=== PATIENT | female | born 1940 | race Caucasian/White ===

== ENCOUNTER 2017-06-14 17:45 | Inpatient (IN) ==
[2017-06-14] MEDS ORDERED: MORPHINE 2 MG/1 ML SYRINGE IM ONE (18:39)
[2017-06-14] MEDS ORDERED: ONDANSETRON 4 MG/2 ML VIAL IM ONE (18:39)
[2017-06-14] MEDS ORDERED: ONDANSETRON 4 MG/2 ML VIAL ONE (18:46)
[2017-06-14] MEDS ORDERED: MORPHINE 2 MG/1 ML SYRINGE ONE (18:46)
[2017-06-14 19:19] LABS: Basophils # 0.1 10*3/uL (0.0-0.2); Basophils % 0.6 % (0.0-0.8); Eosinophils # 0.2 10*3/uL (0.0-0.87); Eosinophils % 1.4 % (0.00-10.9); Hematocrit 44.4 VOL% (35.7-47.0); Hemoglobin 15.4 GM/DL (12.0-16.0); Immature Granulocytes % 0.7 %; Immature Granulocytes Absolute 0.09 #; Lymphocytes # 1.3 10*3/uL (1.4-4.0); Lymphocytes % 10.4 % (21.3-54.2); Mean Corpuscular HGB Conc 34.7 GM/DL (32-36); Mean Corpuscular Hemoglobin 32 PG (27-34); Mean Corpuscular Volume 92.1 FL (87-102); Mean Platelet Volume 9.7 FL (9.6-12.0); Monocytes # 1.2 10*3/uL (0.11-0.8); Monocytes % 9.9 % (1.7-12.7); Neutrophils # 9.4 10*3/uL (1.4-7.4); Platelet Count 219 T/CUMM (130-400); Red Blood Count 4.82 MC/CUMM (3.8-5.5); Red Cell Distribution Width 13.5 % (9.3-17.3); White Blood Count 12.2 T/CUMM (4-12)
[2017-06-14 19:28] LABS: INR 1.7; PT Patient Result 17.4 SECS
[2017-06-14 19:49] LABS: Albumin 3.6 G/DL (3.4-5.0); Bilirubin,Total 0.4 MG/DL (0.2-1.0); Calcium 8.7 MG/DL (8.5-10.1); Osmolality,Calculated 280.5 MOS/KG (273-304); Potassium 3.8 MMOL/L (3.5-5.1)
[2017-06-14] MEDS ORDERED: WARFARIN 5 MG TABLET PO ONE (20:30)
[2017-06-14] MEDS: WARFARIN 5 MG TABLET PO SCH (21:21)
[2017-06-14] MEDS: TOLTERODINE LA 4 MG CAPSULE PO SCH (21:21)
[2017-06-14] MEDS: CARVEDILOL 25 MG TABLET PO SCH (21:21)
[2017-06-14] MEDS: FLECAINIDE 100 MG TABLET PO SCH (21:22)
[2017-06-14] MEDS: GABAPENTIN 100 MG CAPSULE PO SCH (21:22)
[2017-06-14] MEDS: SODIUM CHLORIDE 0.9% 1,000 ML IV SCH (21:40)
[2017-06-14] MEDS ORDERED: HYDROCORTISONE 0.5% CREAM 28.35 GM TUBE TOP PRN (21:56)
[2017-06-15] MEDS: HYDROmorphone 2 MG/1 ML VIAL IV PRN ×2 (01:08→20:59)
[2017-06-15] MEDS: ONDANSETRON 4 MG/2 ML VIAL IV PRN ×2 (01:08→20:59)
[2017-06-15 06:26] LABS: Basophils % 0.6 % (0.0-0.8); Eosinophils # 0.3 10*3/uL (0.0-0.87); Eosinophils % 4.7 % (0.00-10.9); Hematocrit 39.2 VOL% (35.7-47.0); Hemoglobin 13.3 GM/DL (12.0-16.0); Immature Granulocytes % 0.6 %; Immature Granulocytes Absolute 0.04 #; Lymphocytes # 1.4 10*3/uL (1.4-4.0); Lymphocytes % 20.5 % (21.3-54.2); Mean Corpuscular HGB Conc 33.9 GM/DL (32-36); Mean Corpuscular Hemoglobin 32 PG (27-34); Mean Corpuscular Volume 94.5 FL (87-102); Mean Platelet Volume 10.1 FL (9.6-12.0); Monocytes % 14.6 % (1.7-12.7); Neutrophils # 4.1 10*3/uL (1.4-7.4); Platelet Count 188 T/CUMM (130-400); Red Blood Count 4.15 MC/CUMM (3.8-5.5); White Blood Count 6.9 T/CUMM (4-12)
[2017-06-15 06:28] LABS: INR 1.8; PT Patient Result 18.3 SECS
[2017-06-15 06:45] LABS: Calcium 8.2 MG/DL (8.5-10.1); Osmolality,Calculated 284.1 MOS/KG (273-304)
[2017-06-15] MEDS: CARVEDILOL 25 MG TABLET PO SCH ×2 (09:12→17:18)
[2017-06-15] MEDS: hydroCHLOROthiazide 12.5 MG CAPSULE PO SCH (09:12)
[2017-06-15] MEDS: IRBESARTAN 150 MG TABLET PO SCH (09:12)
[2017-06-15] MEDS: FLECAINIDE 100 MG TABLET PO SCH ×2 (09:12→21:05)
[2017-06-15] MEDS: LEVOTHYROXINE 150 MCG TABLET PO SCH (09:13)
[2017-06-15] MEDS: MULTIVITAMIN (CENTRUM) TABLET PO SCH (09:13)
[2017-06-15] MEDS: GABAPENTIN 100 MG CAPSULE PO SCH ×2 (09:13→21:05)
[2017-06-15] MEDS: CALCIUM (CARBONATE) 600 MG TABLET PO SCH (21:05)
[2017-06-15] MEDS: WARFARIN 5 MG TABLET PO SCH (21:06)
[2017-06-15] MEDS: TOLTERODINE LA 4 MG CAPSULE PO SCH (21:06)
[2017-06-15] MEDS: SODIUM CHLORIDE 0.9% 1,000 ML IV SCH (22:52)
[2017-06-16] MEDS: CARVEDILOL 25 MG TABLET PO SCH ×2 (09:54→18:55)
[2017-06-16] MEDS: IRBESARTAN 150 MG TABLET PO SCH (09:54)
[2017-06-16] MEDS: MULTIVITAMIN (CENTRUM) TABLET PO SCH (09:54)
[2017-06-16] MEDS: LEVOTHYROXINE 150 MCG TABLET PO SCH (09:54)
[2017-06-16] MEDS: hydroCHLOROthiazide 12.5 MG CAPSULE PO SCH (09:54)
[2017-06-16] MEDS: GABAPENTIN 100 MG CAPSULE PO SCH ×2 (09:54→21:07)
[2017-06-16] MEDS: FLECAINIDE 100 MG TABLET PO SCH ×2 (09:55→21:08)
[2017-06-16] MEDS: TOLTERODINE LA 4 MG CAPSULE PO SCH (21:07)
[2017-06-16] MEDS: WARFARIN 5 MG TABLET PO SCH (21:08)
[2017-06-16] MEDS: CALCIUM (CARBONATE) 600 MG TABLET PO SCH (21:08)
[2017-06-17] MEDS: HYDROmorphone 2 MG/1 ML VIAL IV PRN (04:09)
[2017-06-17] MEDS: LEVOTHYROXINE 150 MCG TABLET PO SCH (06:40)
[2017-06-17] MEDS: CARVEDILOL 25 MG TABLET PO SCH ×2 (09:15→17:16)
[2017-06-17] MEDS: IRBESARTAN 150 MG TABLET PO SCH (09:15)
[2017-06-17] MEDS: GABAPENTIN 100 MG CAPSULE PO SCH ×2 (09:15→20:58)
[2017-06-17] MEDS: FLECAINIDE 100 MG TABLET PO SCH ×2 (09:15→20:56)
[2017-06-17] MEDS: hydroCHLOROthiazide 12.5 MG CAPSULE PO SCH (09:15)
[2017-06-17] MEDS: MULTIVITAMIN (CENTRUM) TABLET PO SCH (09:15)
[2017-06-17] MEDS ORDERED: LACTULOSE 20 GM/30 ML UDCUP PO PRN (13:27)
[2017-06-17] MEDS ORDERED: BISACODYL 10 MG SUPP RECTAL ONE (13:28)
[2017-06-17 14:08] LABS: INR 1.6; PT Patient Result 16.5 SECS
[2017-06-17] MEDS ORDERED: WARFARIN 3 MG TABLET PO SCH (16:44)
[2017-06-17] MEDS: POLYETHYLENE GLYCOL POWDER 17 GM PACK PO SCH (20:50)
[2017-06-17] MEDS: TOLTERODINE LA 4 MG CAPSULE PO SCH (20:56)
[2017-06-17] MEDS: CALCIUM (CARBONATE) 600 MG TABLET PO SCH (20:57)
[2017-06-17] MEDS: DOCUSATE SODIUM 100 MG CAPSULE PO SCH (20:57)
[2017-06-18] MEDS: CARVEDILOL 25 MG TABLET PO SCH (08:15)
[2017-06-18] MEDS: LEVOTHYROXINE 150 MCG TABLET PO SCH (08:15)
[2017-06-18] MEDS: POLYETHYLENE GLYCOL POWDER 17 GM PACK PO SCH (08:58)
[2017-06-18] MEDS: FLECAINIDE 100 MG TABLET PO SCH (08:59)
[2017-06-18] MEDS: IRBESARTAN 150 MG TABLET PO SCH (09:00)
[2017-06-18] MEDS: hydroCHLOROthiazide 12.5 MG CAPSULE PO SCH (09:00)
[2017-06-18] MEDS ORDERED: amLODIPine 5 MG TABLET PO SCH (09:00)
[2017-06-18] MEDS: DOCUSATE SODIUM 100 MG CAPSULE PO SCH ×2 (09:01→09:06)
[2017-06-18] MEDS: MULTIVITAMIN (CENTRUM) TABLET PO SCH (09:01)
[2017-06-18] MEDS: GABAPENTIN 100 MG CAPSULE PO SCH (09:02)
[2017-06-18 10:21] LABS: INR 1.7; PT Patient Result 17.9 SECS
[2017-06-18 10:56] VITALS: BP 135/66
[2017-06-21] MEDS ORDERED: Alendronate [Fosamax] 70 MG PO SCH (07:30)
== END 2017-06-18 14:15 | DRG 536 ==
LOC: EDBD → EDUNIT# → N.EDINP 17:45 → N.ED 17:45 → N.3E 20:19
PROVIDERS: ADMIT Hospitalist; ATTEND Hospitalist

== ENCOUNTER 2018-04-24 11:31 | Inpatient (IN) ==
[2018-04-24] MEDS ORDERED: PANTOPRAZOLE 40 MG VIAL IV STA (11:59)
[2018-04-24] MEDS ORDERED: SODIUM CHLORIDE 0.9% 1,000 ML IV STA ×2 (11:59→13:25)
[2018-04-24 12:29] LABS: Basophils # 0.1 10*3/uL (0.0-0.2); Basophils % 0.4 % (0.0-0.8); Eosinophils % 0.2 % (0.00-10.9); Hematocrit 28.4 VOL% (35.7-47.0); Hemoglobin 9.8 GM/DL (12.0-16.0); Immature Granulocytes % 0.8 %; Immature Granulocytes Absolute 0.17 #; Lymphocytes # 1.6 10*3/uL (1.4-4.0); Mean Corpuscular HGB Conc 34.5 GM/DL (32-36); Mean Corpuscular Hemoglobin 33 PG (27-34); Mean Corpuscular Volume 95.3 FL (87-102); Mean Platelet Volume 11.5 FL (9.6-12.0); Monocytes # 0.9 10*3/uL (0.11-0.8); Monocytes % 4.2 % (1.7-12.7); Neutrophils # 19.6 10*3/uL (1.4-7.4); Neutrophils % 87.4 % (38.7-73.9); Platelet Count 202 T/CUMM (130-400); Red Blood Count 2.98 MC/CUMM (3.8-5.5); White Blood Count 22.4 T/CUMM (4-12)
[2018-04-24 12:41] LABS: Alanine Aminotransferase 25 U/L (13-56); Albumin 2.7 G/DL (3.4-5.0); Alkaline Phosphatase 56 U/L (45-117); Aspartate Amino Transferase 14 U/L (0-37); Bilirubin,Total < 0.39 MG/DL (0.2-1.0); Blood Urea Nitrogen 99 MG/DL (7-18); Calcium 9.4 MG/DL (8.5-10.1); Glucose 183 MG/DL (74-106); Osmolality,Calculated 316.3 MOS/KG (273-304); Potassium 4.2 MMOL/L (3.5-5.1); Sodium 141 MMOL/L (136-145)
[2018-04-24 12:44] LABS: INR 3.4
[2018-04-24 12:46] LABS: PT Patient Result 33.9 SECS
[2018-04-24] MEDS ORDERED: ONDANSETRON 4 MG/2 ML VIAL IV PRN (13:43)
[2018-04-24] MEDS ORDERED: MORPHINE 4 MG/1 ML VIAL IV PRN (13:43)
[2018-04-24] MEDS ORDERED: PHYTONADIONE 10 MG/1 ML AMP IV STA (13:47)
[2018-04-24] MEDS ORDERED: DILTIAZEM 50 MG/10 ML VIAL IV STA (13:50)
[2018-04-24] MEDS ORDERED: CARVEDILOL 25 MG TABLET PO SCH ×2 (14:00→21:00)
[2018-04-24 14:13] LABS: Band Neutrophils 7 % (0-10); Lymphocytes 6 % (20-55); Segmented Neutrophils 83 % (50-85); Stomatocytes Slight; Total Cells Counted 100
[2018-04-24 14:15] LABS: Platelet Estimate Normal; Polychromasia Slight
[2018-04-24] MEDS ORDERED: ACETAMINOPHEN 325 MG TABLET PO PRN (14:21)
[2018-04-24] MEDS ORDERED: SODIUM CHLORIDE 0.9% 1,000 ML IV PRN (14:41)
[2018-04-24] MEDS: PANTOPRAZOLE INJ 200 MG in SODIUM CHLORIDE 0.9% 250 ML IV SCH (17:15)
[2018-04-24] MEDS: SODIUM CHLORIDE 0.9% 1,000 ML IV SCH (17:15)
[2018-04-24] MEDS ORDERED: DILTIAZEM 25 MG/5 ML VIAL IV ONE (17:28)
[2018-04-24 17:56] LABS: Hematocrit 23.3 VOL% (35.7-47.0)
[2018-04-24 20:01] LABS: Hematocrit 23.7 VOL% (35.7-47.0); Hemoglobin 8.1 GM/DL (12.0-16.0)
[2018-04-24] MEDS ORDERED: IRBESARTAN 150 MG TABLET PO SCH (21:00)
[2018-04-24] MEDS ORDERED: DILTIAZEM CD 120 MG CAPSULE PO SCH (21:00)
[2018-04-24] MEDS: DILTIAZEM CD 120 MG CAPSULE PO SCH (21:18)
[2018-04-24] MEDS: CALCIUM (CARBONATE) 600 MG TABLET PO SCH (21:18)
[2018-04-24] MEDS: PRAVASTATIN 20 MG TABLET PO SCH (21:18)
[2018-04-24] MEDS: CARVEDILOL 25 MG TABLET PO SCH (21:18)
[2018-04-24] MEDS: FLECAINIDE 100 MG TABLET PO SCH (21:24)
[2018-04-25 01:10] LABS: Apearance,Urine Slightly Hazy (Clear); Bacteria,Urine Moderate /HPF (Few); Bilirubin,Urine Negative (Negative); Blood, Urine Negative (Negative); Glucose,Urine (UA) Negative (Negative); Hyaline Casts,Urine 1 /LPF (0-3); Ketones,Urine Negative (Negative); Mucus,Urine Occasional /LPF (Occasional); Nitrite,Urine Positive (Negative); Protein,Urine Negative; RBC,Urine 1 /HPF (0-4); Squamous Epithelial Cell,Urine Occasional /HPF (0-10); Urine Color Straw (Yellow); Urine Specific Gravity 1.011 (1.001-1.035); Urine Urobilinogen < 2.0 EU/DL (0.2-1.0); WBC,Urine 65 /HPF (0-6)
[2018-04-25 02:31] LABS: Basophils % 0.3 % (0.0-0.8); Eosinophils # 0.2 10*3/uL (0.0-0.87); Eosinophils % 1.6 % (0.00-10.9); Hematocrit 19.5 VOL% (35.7-47.0); Hemoglobin 6.6 GM/DL (12.0-16.0); Immature Granulocytes % 0.7 %; Immature Granulocytes Absolute 0.09 #; Lymphocytes # 2.4 10*3/uL (1.4-4.0); Lymphocytes % 18.9 % (21.3-54.2); Mean Corpuscular HGB Conc 33.8 GM/DL (32-36); Mean Corpuscular Hemoglobin 33 PG (27-34); Mean Corpuscular Volume 96.5 FL (87-102); Mean Platelet Volume 10.2 FL (9.6-12.0); Monocytes % 7.6 % (1.7-12.7); Neutrophils # 9.1 10*3/uL (1.4-7.4); Neutrophils % 70.9 % (38.7-73.9); Platelet Count 139 T/CUMM (130-400); Red Blood Count 2.02 MC/CUMM (3.8-5.5); Red Cell Distribution Width 14.1 % (9.3-17.3); White Blood Count 12.8 T/CUMM (4-12)
[2018-04-25 02:45] LABS: INR 1.2; PT Patient Result 12.6 SECS
[2018-04-25] MEDS: SODIUM CHLORIDE 0.9% 1,000 ML IV SCH (02:46)
[2018-04-25 03:03] LABS: Albumin 2.1 G/DL (3.4-5.0); Bilirubin,Total 0.4 MG/DL (0.2-1.0); Calcium 7.8 MG/DL (8.5-10.1); Osmolality,Calculated 316.3 MOS/KG (273-304); Potassium 3.5 MMOL/L (3.5-5.1); Total Protein 4.4 G/DL (6.4-8.3)
[2018-04-25] MEDS: LEVOTHYROXINE 150 MCG TABLET PO SCH (06:09)
[2018-04-25] MEDS ORDERED: MAGNESIUM SULF RIDER 2 GM in PREMIX 1 EACH IV ONE (07:54)
[2018-04-25] MEDS ORDERED: FUROSEMIDE 40 MG TABLET PO SCH (09:00)
[2018-04-25] MEDS ORDERED: hydroCHLOROthiazide 25 MG TABLET PO SCH (09:00)
[2018-04-25] MEDS ORDERED: POTASSIUM CHLORIDE 20 MEQ TABLET PO SCH (09:00)
[2018-04-25] MEDS: LACTATED RINGERS 1,000 ML IV SCH (09:10)
[2018-04-25] MEDS: CIPROFLOXACIN INJ 400 MG in PREMIX 1 EACH IV SCH ×2 (09:10→20:08)
[2018-04-25] MEDS: CARVEDILOL 25 MG TABLET PO SCH ×2 (09:51→20:41)
[2018-04-25] MEDS: MULTIVITAMIN (CENTRUM) TABLET PO SCH (09:51)
[2018-04-25] MEDS: DILTIAZEM CD 120 MG CAPSULE PO SCH ×2 (09:51→20:40)
[2018-04-25] MEDS: TOLTERODINE LA 4 MG CAPSULE PO SCH (09:52)
[2018-04-25] MEDS: FLECAINIDE 100 MG TABLET PO SCH (09:59)
[2018-04-25 12:12] LABS: Hematocrit 28.7 VOL% (35.7-47.0)
[2018-04-25 12:14] LABS: Hemoglobin 9.9 GM/DL (12.0-16.0)
[2018-04-25] MEDS: ALPRAZolam 0.5 MG TABLET PO PRN (16:14)
[2018-04-25] MEDS: PANTOPRAZOLE INJ 200 MG in SODIUM CHLORIDE 0.9% 250 ML IV SCH (18:02)
[2018-04-25 18:14] LABS: Hematocrit 29.4 VOL% (35.7-47.0); Hemoglobin 10.4 GM/DL (12.0-16.0)
[2018-04-25] MEDS: PRAVASTATIN 20 MG TABLET PO SCH (20:41)
[2018-04-25] MEDS: CALCIUM (CARBONATE) 600 MG TABLET PO SCH (20:41)
[2018-04-26] MEDS: LACTATED RINGERS 1,000 ML IV SCH ×2 (00:34→10:34)
[2018-04-26 04:05] LABS: Basophils % 0.3 % (0.0-0.8); Eosinophils # 0.4 10*3/uL (0.0-0.87); Hematocrit 25.8 VOL% (35.7-47.0); Hemoglobin 9.1 GM/DL (12.0-16.0); Immature Granulocytes % 0.6 %; Immature Granulocytes Absolute 0.05 #; Lymphocytes # 2.3 10*3/uL (1.4-4.0); Lymphocytes % 25.4 % (21.3-54.2); Mean Corpuscular HGB Conc 35.3 GM/DL (32-36); Mean Corpuscular Hemoglobin 33 PG (27-34); Mean Corpuscular Volume 92.5 FL (87-102); Mean Platelet Volume 10.5 FL (9.6-12.0); Monocytes # 0.6 10*3/uL (0.11-0.8); Monocytes % 7.1 % (1.7-12.7); NRBC # 0.02 10*3/uL; Neutrophils # 5.7 10*3/uL (1.4-7.4); Neutrophils % 62.6 % (38.7-73.9); Platelet Count 149 T/CUMM (130-400); Red Blood Count 2.79 MC/CUMM (3.8-5.5); Red Cell Distribution Width 14.4 % (9.3-17.3); White Blood Count 9.1 T/CUMM (4-12)
[2018-04-26 04:09] LABS: INR 1.1; PT Patient Result 11.4 SECS
[2018-04-26 04:11] LABS: Albumin 2.2 G/DL (3.4-5.0); Bilirubin,Total 0.9 MG/DL (0.2-1.0); Calcium 7.7 MG/DL (8.5-10.1); Osmolality,Calculated 297.4 MOS/KG (273-304); Potassium 3.4 MMOL/L (3.5-5.1); Total Protein 4.6 G/DL (6.4-8.3)
[2018-04-26] MEDS: LEVOTHYROXINE 150 MCG TABLET PO SCH (06:23)
[2018-04-26] MEDS ORDERED: MAGNESIUM HYDROXIDE SUSP 30 ML UDCUP PO PRN (07:37)
[2018-04-26] MEDS: MULTIVITAMIN (CENTRUM) TABLET PO SCH (09:37)
[2018-04-26] MEDS: POTASSIUM CHLORIDE 20 MEQ TABLET PO SCH ×2 (09:37→16:29)
[2018-04-26] MEDS: CARVEDILOL 25 MG TABLET PO SCH ×2 (09:37→20:32)
[2018-04-26] MEDS: CIPROFLOXACIN INJ 400 MG in PREMIX 1 EACH IV SCH ×2 (09:37→20:07)
[2018-04-26] MEDS: DILTIAZEM CD 120 MG CAPSULE PO SCH ×2 (09:37→20:32)
[2018-04-26] MEDS: TOLTERODINE LA 4 MG CAPSULE PO SCH (09:53)
[2018-04-26] MEDS ORDERED: POTASSIUM CHLORIDE 20 MEQ TABLET PO ONE (16:30)
[2018-04-26] MEDS: CALCIUM (CARBONATE) 600 MG TABLET PO SCH (20:31)
[2018-04-26] MEDS: PRAVASTATIN 20 MG TABLET PO SCH (20:32)
[2018-04-26] MEDS: PANTOPRAZOLE 40 MG VIAL IV SCH (20:34)
[2018-04-26] MEDS: ALPRAZolam 0.5 MG TABLET PO PRN (22:42)
[2018-04-27 04:09] LABS: Basophils % 0.3 % (0.0-0.8); Eosinophils # 0.4 10*3/uL (0.0-0.87); Eosinophils % 4.4 % (0.00-10.9); Hematocrit 26.8 VOL% (35.7-47.0); Hemoglobin 8.9 GM/DL (12.0-16.0); Immature Granulocytes % 0.8 %; Immature Granulocytes Absolute 0.07 #; Lymphocytes % 23.2 % (21.3-54.2); Mean Corpuscular HGB Conc 33.2 GM/DL (32-36); Mean Corpuscular Hemoglobin 33 PG (27-34); Mean Corpuscular Volume 97.8 FL (87-102); Mean Platelet Volume 10.6 FL (9.6-12.0); Monocytes # 0.7 10*3/uL (0.11-0.8); Monocytes % 8.4 % (1.7-12.7); Neutrophils # 5.4 10*3/uL (1.4-7.4); Neutrophils % 62.9 % (38.7-73.9); Platelet Count 157 T/CUMM (130-400); Red Blood Count 2.74 MC/CUMM (3.8-5.5); Red Cell Distribution Width 14.8 % (9.3-17.3); White Blood Count 8.6 T/CUMM (4-12)
[2018-04-27 04:14] LABS: INR 1.1; PT Patient Result 11.1 SECS
[2018-04-27] MEDS: LACTATED RINGERS 1,000 ML IV SCH ×4 (04:24→20:09)
[2018-04-27 04:51] LABS: Albumin 2.4 G/DL (3.4-5.0); Bilirubin,Total 0.9 MG/DL (0.2-1.0); Calcium 8.2 MG/DL (8.5-10.1); Osmolality,Calculated 296.1 MOS/KG (273-304); Potassium 4.2 MMOL/L (3.5-5.1); Total Protein 4.7 G/DL (6.4-8.3)
[2018-04-27] MEDS: LEVOTHYROXINE 150 MCG TABLET PO SCH (06:17)
[2018-04-27] MEDS: DILTIAZEM CD 120 MG CAPSULE PO SCH ×2 (09:27→21:07)
[2018-04-27] MEDS: CIPROFLOXACIN INJ 400 MG in PREMIX 1 EACH IV SCH (09:27)
[2018-04-27] MEDS: MULTIVITAMIN (CENTRUM) TABLET PO SCH (09:27)
[2018-04-27] MEDS: TOLTERODINE LA 4 MG CAPSULE PO SCH (09:27)
[2018-04-27] MEDS: CARVEDILOL 25 MG TABLET PO SCH ×2 (09:27→21:07)
[2018-04-27] MEDS: PANTOPRAZOLE 40 MG VIAL IV SCH (09:28)
[2018-04-27] MEDS ORDERED: PHENYLEPHRINE 1 MG/10 ML SYRINGE IV ONE (10:00)
[2018-04-27] MEDS ORDERED: LIDOCAINE 100 MG/5 ML SYRINGE ONE (10:00)
[2018-04-27] MEDS ORDERED: PROPOFOL 200 MG/20 ML VIAL IV ONE (10:00)
[2018-04-27] MEDS: PANTOPRAZOLE 40 MG TABLET PO SCH (21:07)
[2018-04-27] MEDS: CIPROFLOXACIN 500 MG TABLET PO SCH (21:07)
[2018-04-27] MEDS: CALCIUM (CARBONATE) 600 MG TABLET PO SCH (21:07)
[2018-04-27] MEDS: PRAVASTATIN 20 MG TABLET PO SCH (21:07)
[2018-04-28] MEDS: LACTATED RINGERS 1,000 ML IV SCH (05:21)
[2018-04-28 05:35] LABS: Basophils % 0.4 % (0.0-0.8); Eosinophils # 0.3 10*3/uL (0.0-0.87); Eosinophils % 3.7 % (0.00-10.9); Hematocrit 26.7 VOL% (35.7-47.0); Immature Granulocytes % 0.5 %; Immature Granulocytes Absolute 0.04 #; Lymphocytes # 1.1 10*3/uL (1.4-4.0); Lymphocytes % 14.9 % (21.3-54.2); Mean Corpuscular HGB Conc 33.7 GM/DL (32-36); Mean Corpuscular Hemoglobin 32 PG (27-34); Mean Platelet Volume 10.2 FL (9.6-12.0); Monocytes # 0.7 10*3/uL (0.11-0.8); Monocytes % 8.7 % (1.7-12.7); Neutrophils # 5.5 10*3/uL (1.4-7.4); Neutrophils % 71.8 % (38.7-73.9); Platelet Count 178 T/CUMM (130-400); Red Blood Count 2.78 MC/CUMM (3.8-5.5); Red Cell Distribution Width 14.7 % (9.3-17.3); White Blood Count 7.6 T/CUMM (4-12)
[2018-04-28 05:49] LABS: Osmolality,Calculated 290.6 MOS/KG (273-304); Potassium 3.9 MMOL/L (3.5-5.1)
[2018-04-28] MEDS: LEVOTHYROXINE 150 MCG TABLET PO SCH (06:38)
[2018-04-28] MEDS: CIPROFLOXACIN 500 MG TABLET PO SCH ×2 (09:00→20:58)
[2018-04-28] MEDS: DILTIAZEM CD 120 MG CAPSULE PO SCH ×2 (09:13→20:58)
[2018-04-28] MEDS: CARVEDILOL 25 MG TABLET PO SCH ×2 (09:13→20:58)
[2018-04-28] MEDS: MULTIVITAMIN (CENTRUM) TABLET PO SCH (09:13)
[2018-04-28] MEDS: PANTOPRAZOLE 40 MG TABLET PO SCH ×2 (09:13→20:58)
[2018-04-28] MEDS: TOLTERODINE LA 4 MG CAPSULE PO SCH (09:13)
[2018-04-28] MEDS ORDERED: LEVOTHYROXINE 175 MCG TABLET PO SCH (11:20)
[2018-04-28] MEDS: PRAVASTATIN 20 MG TABLET PO SCH (20:58)
[2018-04-28] MEDS: CALCIUM (CARBONATE) 600 MG TABLET PO SCH (20:58)
[2018-04-29] MEDS ORDERED: BISACODYL 5 MG TABLET PO ONE
[2018-04-29 08:14] LABS: Basophils # 0.1 10*3/uL (0.0-0.2); Basophils % 0.6 % (0.0-0.8); Eosinophils # 0.2 10*3/uL (0.0-0.87); Eosinophils % 2.9 % (0.00-10.9); Hematocrit 28.9 VOL% (35.7-47.0); Hemoglobin 9.8 GM/DL (12.0-16.0); Immature Granulocytes % 0.7 %; Immature Granulocytes Absolute 0.06 #; Lymphocytes # 1.2 10*3/uL (1.4-4.0); Lymphocytes % 14.7 % (21.3-54.2); Mean Corpuscular HGB Conc 33.9 GM/DL (32-36); Mean Corpuscular Hemoglobin 33 PG (27-34); Mean Corpuscular Volume 98.3 FL (87-102); Mean Platelet Volume 9.8 FL (9.6-12.0); Monocytes # 0.7 10*3/uL (0.11-0.8); Monocytes % 8.3 % (1.7-12.7); NRBC # 0.02 10*3/uL; Neutrophils % 72.8 % (38.7-73.9); Platelet Count 204 T/CUMM (130-400); Red Blood Count 2.94 MC/CUMM (3.8-5.5); Red Cell Distribution Width 15.4 % (9.3-17.3); White Blood Count 8.2 T/CUMM (4-12)
[2018-04-29] MEDS: CIPROFLOXACIN 500 MG TABLET PO SCH (09:27)
[2018-04-29] MEDS: CARVEDILOL 25 MG TABLET PO SCH (09:28)
[2018-04-29] MEDS: MULTIVITAMIN (CENTRUM) TABLET PO SCH (09:28)
[2018-04-29] MEDS: DILTIAZEM CD 120 MG CAPSULE PO SCH (09:28)
[2018-04-29] MEDS: PANTOPRAZOLE 40 MG TABLET PO SCH (09:28)
[2018-04-29] MEDS: TOLTERODINE LA 4 MG CAPSULE PO SCH (09:28)
[2018-04-29 11:21] VITALS: BP 105/55
[2018-05-01] MEDS ORDERED: NON-FORMULARY MEDICATION (Alendronate [Fosamax] 70 MG) PO SCH (07:30)
== END 2018-04-29 11:50 | disposition home or self-care (01) | DRG 813 ==
LOC: N.ED 11:31 → SUATTDRO 13:43 → N.EDINP 13:43 → N.ICU 16:16 → N.TELEN 04-27 13:19
PROVIDERS: ADMIT Internal Medicine; ATTEND Internal Medicine

== ENCOUNTER 2018-09-14 05:24 | Inpatient (IN) ==
[2018-09-09 10:55] LABS: Apearance,Urine Slightly Hazy (Clear); Bacteria,Urine Many /HPF (Few); Bilirubin,Urine Negative (Negative); Blood, Urine Negative (Negative); Glucose,Urine (UA) Negative (Negative); Ketones,Urine Negative (Negative); Mucus,Urine Occasional /LPF (Occasional); Nitrite,Urine Positive (Negative); Protein,Urine Negative; RBC,Urine 1 /HPF (0-4); Squamous Epithelial Cell,Urine Occasional /HPF (0-10); Urine Color Yellow (Yellow); Urine Specific Gravity 1.017 (1.001-1.035); Urine Urobilinogen < 2.0 EU/DL (0.2-1.0); WBC,Urine <1 /HPF (0-6)
[2018-09-09 11:01] LABS: Basophils # 0.1 10*3/uL (0.0-0.2); Basophils % 0.6 % (0.0-0.8); Eosinophils # 0.1 10*3/uL (0.0-0.87); Eosinophils % 1.2 % (0.00-10.9); Hemoglobin 14.6 GM/DL (12.0-16.0); Immature Granulocytes % 0.4 %; Immature Granulocytes Absolute 0.03 #; Lymphocytes # 1.1 10*3/uL (1.4-4.0); Lymphocytes % 13.6 % (21.3-54.2); Mean Corpuscular HGB Conc 32.4 GM/DL (32-36); Mean Corpuscular Hemoglobin 30 PG (27-34); Mean Corpuscular Volume 91.8 FL (87-102); Mean Platelet Volume 10.3 FL (9.6-12.0); Monocytes # 0.6 10*3/uL (0.11-0.8); Monocytes % 7.4 % (1.7-12.7); Neutrophils # 6.4 10*3/uL (1.4-7.4); Neutrophils % 76.8 % (38.7-73.9); Platelet Count 209 T/CUMM (130-400); White Blood Count 8.3 T/CUMM (4-12)
[2018-09-09 11:30] LABS: Calcium 9.2 MG/DL (8.5-10.1); Osmolality,Calculated 284.5 MOS/KG (273-304); Potassium 3.6 MMOL/L (3.5-5.1)
[2018-09-14] MEDS ORDERED: ceFAZolin 1,000 MG in SYRINGE 1 EACH IV ONE (06:00)
[2018-09-14] MEDS ORDERED: ceFAZolin 1,000 MG VIAL ONE (07:06)
[2018-09-14] MEDS ORDERED: LACTATED RINGERS 1,000 ML IV SCH (07:30)
[2018-09-14] MEDS ORDERED: BACITRACIN OINT 0.9 GM PACK TOP ONE (08:12)
[2018-09-14] MEDS ORDERED: ONDANSETRON 4 MG/2 ML VIAL IV PRN (10:22)
[2018-09-14] MEDS ORDERED: ZALEPLON 5 MG CAPSULE PO PRN (10:22)
[2018-09-14] MEDS ORDERED: MAGNESIUM HYDROXIDE SUSP 30 ML UDCUP PO PRN (10:22)
[2018-09-14] MEDS ORDERED: MORPHINE 4 MG/1 ML VIAL IV PRN ×2 (10:22)
[2018-09-14] MEDS ORDERED: diphenhydrAMINE CAP 25 MG CAPSULE PO PRN (10:22)
[2018-09-14] MEDS ORDERED: fentaNYL 100 MCG/2 ML VIAL ONE (10:39)
[2018-09-14] MEDS ORDERED: PROPOFOL 200 MG/20 ML VIAL IV ONE (10:39)
[2018-09-14] MEDS ORDERED: EPINEPHrine 1 MG/ML VIAL ONE (10:39)
[2018-09-14] MEDS ORDERED: BUPIVACAINE SPINAL 0.75% 2 ML AMP SPINAL ONE (10:39)
[2018-09-14] MEDS ORDERED: ROPIVACAINE 0.5% 30 ML VIAL ONE (10:40)
[2018-09-14] MEDS ORDERED: PHENYLEPHRINE 1 MG/10 ML SYRINGE IV ONE (10:40)
[2018-09-14] MEDS ORDERED: MIDAZOLAM 2 MG/2 ML VIAL ONE (10:40)
[2018-09-14 10:41] LABS: Apearance,Urine Slightly Hazy (Clear); Bacteria,Urine Occasional /HPF (Few); Bilirubin,Urine Negative (Negative); Blood, Urine Negative (Negative); Glucose,Urine (UA) Negative (Negative); Ketones,Urine Negative (Negative); Mucus,Urine Occasional /LPF (Occasional); Nitrite,Urine Negative (Negative); Protein,Urine Negative; RBC,Urine 3 /HPF (0-4); Urine Color Yellow (Yellow); Urine Specific Gravity 1.025 (1.001-1.035); Urine Urobilinogen < 2.0 EU/DL (0.2-1.0); WBC,Urine 1 /HPF (0-6)
[2018-09-14] MEDS: LACTATED RINGERS 1,000 ML IV SCH ×2 (11:37→21:01)
[2018-09-14] MEDS: KETOROLAC 15 MG/1 ML VIAL IV SCH ×3 (12:00→23:00)
[2018-09-14] MEDS ORDERED: INFLUENZA VIRUS VACCINE 0.5 ML SYRINGE IM ONE (12:00)
[2018-09-14] MEDS ORDERED: PNEUMOCOCCAL VACCINE (13 VALENT) 0.5 ML SYRINGE IM ONE (13:30)
[2018-09-14] MEDS: ceFAZolin 2,000 MG in PREMIX 1 EACH IV SCH ×2 (14:20→23:01)
[2018-09-14] MEDS: CARVEDILOL 25 MG TABLET PO SCH (20:59)
[2018-09-14] MEDS: DOCUSATE SODIUM 100 MG CAPSULE PO SCH (20:59)
[2018-09-14] MEDS: DILTIAZEM CD 120 MG CAPSULE PO SCH (20:59)
[2018-09-14] MEDS: SIMVASTATIN 10 MG TABLET PO SCH (21:00)
[2018-09-14] MEDS: APIXABAN 2.5 MG TABLET PO SCH (21:00)
[2018-09-15 04:57] LABS: Basophils # 0.1 10*3/uL (0.0-0.2); Basophils % 0.5 % (0.0-0.8); Eosinophils # 0.4 10*3/uL (0.0-0.87); Eosinophils % 4.1 % (0.00-10.9); Hemoglobin 12.8 GM/DL (12.0-16.0); Immature Granulocytes % 0.5 %; Immature Granulocytes Absolute 0.05 #; Lymphocytes % 9.3 % (21.3-54.2); Mean Corpuscular HGB Conc 32.8 GM/DL (32-36); Mean Corpuscular Hemoglobin 30 PG (27-34); Mean Corpuscular Volume 92.6 FL (87-102); Mean Platelet Volume 10.7 FL (9.6-12.0); Monocytes % 9.3 % (1.7-12.7); Neutrophils # 7.8 10*3/uL (1.4-7.4); Neutrophils % 76.3 % (38.7-73.9); Platelet Count 177 T/CUMM (130-400); Red Blood Count 4.21 MC/CUMM (3.8-5.5); Red Cell Distribution Width 15.4 % (9.3-17.3); White Blood Count 10.2 T/CUMM (4-12)
[2018-09-15 05:22] LABS: Calcium 8.3 MG/DL (8.5-10.1); Osmolality,Calculated 280.7 MOS/KG (273-304); Potassium 3.9 MMOL/L (3.5-5.1)
[2018-09-15] MEDS: LEVOTHYROXINE 175 MCG TABLET PO SCH (05:56)
[2018-09-15] MEDS: KETOROLAC 15 MG/1 ML VIAL IV SCH (05:57)
[2018-09-15] MEDS: hydroCHLOROthiazide 25 MG TABLET PO SCH (08:26)
[2018-09-15] MEDS: APIXABAN 2.5 MG TABLET PO SCH ×2 (08:26→20:50)
[2018-09-15] MEDS: TOLTERODINE LA 4 MG CAPSULE PO SCH (08:26)
[2018-09-15] MEDS: DOCUSATE SODIUM 100 MG CAPSULE PO SCH ×2 (08:26→20:50)
[2018-09-15] MEDS: CARVEDILOL 25 MG TABLET PO SCH ×2 (08:26→20:50)
[2018-09-15] MEDS: MULTIVITAMIN (CENTRUM) TABLET PO SCH (08:27)
[2018-09-15] MEDS: DILTIAZEM CD 120 MG CAPSULE PO SCH ×2 (08:27→20:50)
[2018-09-15] MEDS ORDERED: ACETAMINOPHEN 325 MG TABLET PO PRN (10:23)
[2018-09-15] MEDS: SIMVASTATIN 10 MG TABLET PO SCH (20:50)
[2018-09-16] MEDS: LEVOTHYROXINE 175 MCG TABLET PO SCH (05:51)
[2018-09-16 05:52] LABS: Basophils # 0.1 10*3/uL (0.0-0.2); Basophils % 0.7 % (0.0-0.8); Eosinophils # 0.6 10*3/uL (0.0-0.87); Eosinophils % 7.5 % (0.00-10.9); Hematocrit 34.5 VOL% (35.7-47.0); Hemoglobin 11.3 GM/DL (12.0-16.0); Immature Granulocytes % 0.4 %; Immature Granulocytes Absolute 0.03 #; Lymphocytes # 1.3 10*3/uL (1.4-4.0); Lymphocytes % 15.3 % (21.3-54.2); Mean Corpuscular HGB Conc 32.8 GM/DL (32-36); Mean Corpuscular Hemoglobin 31 PG (27-34); Mean Platelet Volume 10.5 FL (9.6-12.0); Monocytes % 11.7 % (1.7-12.7); Neutrophils # 5.4 10*3/uL (1.4-7.4); Neutrophils % 64.4 % (38.7-73.9); Platelet Count 153 T/CUMM (130-400); Red Blood Count 3.71 MC/CUMM (3.8-5.5); Red Cell Distribution Width 15.2 % (9.3-17.3); White Blood Count 8.4 T/CUMM (4-12)
[2018-09-16 07:58] VITALS: BP 144/97
[2018-09-16] MEDS: DILTIAZEM CD 120 MG CAPSULE PO SCH (09:35)
[2018-09-16] MEDS: MULTIVITAMIN (CENTRUM) TABLET PO SCH (09:35)
[2018-09-16] MEDS: APIXABAN 2.5 MG TABLET PO SCH (09:36)
[2018-09-16] MEDS: hydroCHLOROthiazide 25 MG TABLET PO SCH (09:36)
[2018-09-16] MEDS: CARVEDILOL 25 MG TABLET PO SCH (09:36)
[2018-09-16] MEDS: TOLTERODINE LA 4 MG CAPSULE PO SCH (09:36)
[2018-09-16] MEDS: DOCUSATE SODIUM 100 MG CAPSULE PO SCH (09:36)
== END 2018-09-16 12:18 | disposition home health service (06) | DRG 482 ==
LOC: N.OR 05:24 → N.SDSINP 05:26 → N.3E 10:22
PROVIDERS: ADMIT Orthopaedic Surgery; ATTEND Orthopaedic Surgery

== ENCOUNTER 2021-11-29 07:48 | Inpatient (IN) ==
[2021-11-29] MEDS ORDERED: methylPREDNISolone SOD SUC 125 MG/2 ML VIAL IV STA (12:06)
[2021-11-29] MEDS ORDERED: ALBUTEROL NEB SOLN 5 MG/ML 20 ML/BOTTLE CONT NEB SCH (12:30)
[2021-11-29 13:15] LABS: Basophils % 0.2 % (0.0-0.8); Eosinophils # 0.2 10*3/uL (0.0-0.87); Eosinophils % 1.3 % (0.00-10.9); Hematocrit 54.3 VOL% (35.7-47.0); Hemoglobin 18.3 GM/DL (12.0-16.0); Immature Granulocytes Absolute 0.17 #; Lymphocytes # 1.3 10*3/uL (1.4-4.0); Lymphocytes % 7.6 % (21.3-54.2); Mean Corpuscular HGB Conc 33.7 GM/DL (32-36); Mean Corpuscular Volume 94.6 FL (87-102); Monocytes # 1.5 10*3/uL (0.11-0.8); Monocytes % 8.7 % (1.7-12.7); Neutrophils % 81.2 % (38.7-73.9); Platelet Count 222 T/CUMM (130-400); Red Blood Count 5.74 MC/CUMM (3.8-5.5); Red Cell Distribution Width 14.4 % (9.3-17.3); White Blood Count 16.9 T/CUMM (4-12)
[2021-11-29] MEDS ORDERED: DILTIAZEM 50 MG/10 ML VIAL IV STA (13:27)
[2021-11-29 13:41] LABS: Albumin 2.8 G/DL (3.4-5.0); Bilirubin,Total 1.3 MG/DL (0.20-1.00); Potassium 3.8 MMOL/L (3.5-5.1); Total Protein 5.7 G/DL (6.4-8.2)
[2021-11-29] MEDS: DILTIAZEM INJ 100 MG in SODIUM CHLORIDE 0.9% 100 ML IV SCH ×2 (13:50→20:30)
[2021-11-29] MEDS ORDERED: ACETAMINOPHEN 325 MG TABLET PO PRN (16:10)
[2021-11-29] MEDS ORDERED: GLUCAGON 1 MG VIAL IM PRN (16:10)
[2021-11-29] MEDS ORDERED: DOCUSATE SODIUM 100 MG CAPSULE PO PRN (16:10)
[2021-11-29] MEDS ORDERED: hydrALAZINE 20 MG/1 ML VIAL IV PRN (16:10)
[2021-11-29] MEDS ORDERED: LEVALBUTEROL 0.31 MG/3 ML NEB RESP TX PRN (16:13)
[2021-11-29] MEDS ORDERED: POLYETHYLENE GLYCOL POWDER 17 GM PACK PO PRN (16:15)
[2021-11-29] MEDS ORDERED: ENOXAPARIN 40 MG/0.4 ML SYRINGE SUBCUT SCH (16:30)
[2021-11-29] MEDS ORDERED: DEXTROSE 10% 250 ML BAG IV PRN (16:35)
[2021-11-29] MEDS ORDERED: ONDANSETRON 4 MG/2 ML VIAL IV PRN (16:37)
[2021-11-29 17:00] LABS: Mucus,Urine Occasional /LPF (Occasional); RBC,Urine 2 /HPF (0-4); Squamous Epithelial Cell,Urine Occasional /HPF (0-10)
[2021-11-29 17:01] LABS: Bilirubin,Urine Negative (Negative); Blood, Urine Negative (Negative); Glucose,Urine (UA) Negative (Negative); Ketones,Urine Negative (Negative); Nitrite,Urine Negative (Negative); Protein,Urine Negative (Negative); Urine Appearance Clear (Clear); Urine Color Yellow (Yellow); Urine Specific Gravity 1.015 (1.001-1.035); Urine Urobilinogen 0.2 eU/dL (<2.0)
[2021-11-29] MEDS: FUROSEMIDE 40 MG/4 ML VIAL IV SCH (17:25)
[2021-11-29] MEDS: APIXABAN 2.5 MG TABLET PO SCH (20:31)
[2021-11-29] MEDS: DILTIAZEM CD 120 MG CAPSULE PO SCH (20:31)
[2021-11-29] MEDS: carvediloL 25 MG TABLET PO SCH (20:31)
[2021-11-29] MEDS ORDERED: SIMVASTATIN 10 MG TABLET PO SCH (21:00)
[2021-11-29] MEDS ORDERED: CALCIUM CARBONATE CHEW 500 MG TABLET PO SCH (21:00)
[2021-11-30 04:56] LABS: Basophils % 0.1 % (0.0-0.8); Hematocrit 50.2 VOL% (35.7-47.0); Hemoglobin 17.2 GM/DL (12.0-16.0); Immature Granulocytes % 0.8 %; Immature Granulocytes Absolute 0.11 #; Lymphocytes # 0.6 10*3/uL (1.4-4.0); Lymphocytes % 4.5 % (21.3-54.2); Mean Corpuscular HGB Conc 34.3 GM/DL (32-36); Mean Corpuscular Volume 94.5 FL (87-102); Mean Platelet Volume 10.9 FL (9.6-12.0); Monocytes # 0.3 10*3/uL (0.11-0.8); Neutrophils % 92.6 % (38.7-73.9); Platelet Count 179 T/CUMM (130-400); Red Blood Count 5.31 MC/CUMM (3.8-5.5); Red Cell Distribution Width 14.3 % (9.3-17.3); White Blood Count 13.7 T/CUMM (4-12)
[2021-11-30 05:18] LABS: Albumin 2.3 G/DL (3.4-5.0); Bilirubin,Total 0.8 MG/DL (0.20-1.00); Calcium 8.7 MG/DL (8.5-10.1); Potassium 3.3 MMOL/L (3.5-5.1); Risk Ratio 3.26; Thyroid Stimulating Hormone 0.184 uIU/ml (0.358-3.74); Total Protein 5.9 G/DL (6.4-8.2); VLDL Cholesterol 22.4 MG/DL
[2021-11-30 05:20] LABS: Lymphocytes 3 % (20-55); Platelet Estimate Adequate; Total Cells Counted 100
[2021-11-30] MEDS: DILTIAZEM INJ 100 MG in SODIUM CHLORIDE 0.9% 100 ML IV SCH ×2 (06:02→10:00)
[2021-11-30] MEDS ORDERED: LEVOTHYROXINE 175 MCG TABLET PO SCH (06:30)
[2021-11-30] MEDS ORDERED: POTASSIUM CHLORIDE 20 MEQ TABLET PO ONE (07:57)
[2021-11-30 08:51] LABS: Free T4 (Free Thyroxine) 1.83 NG/DL (0.76-1.46)
[2021-11-30] MEDS ORDERED: EZETIMIBE 10 MG TABLET PO SCH (09:00)
[2021-11-30] MEDS ORDERED: PANTOPRAZOLE 40 MG TABLET PO SCH (09:00)
[2021-11-30] MEDS ORDERED: MULTIVITAMIN (CENTRUM) TABLET PO SCH (09:00)
[2021-11-30] MEDS: FUROSEMIDE 40 MG/4 ML VIAL IV SCH ×2 (09:54→16:10)
[2021-11-30] MEDS: DILTIAZEM CD 120 MG CAPSULE PO SCH (09:55)
[2021-11-30] MEDS: carvediloL 25 MG TABLET PO SCH (09:55)
[2021-11-30] MEDS: APIXABAN 2.5 MG TABLET PO SCH (09:56)
[2021-11-30 12:27] VITALS: BP 126/85
== END 2021-11-30 17:16 | disposition home or self-care (01) | DRG 308 ==
LOC: N.ED 07:48 → N.EDINP 16:10 → SUATTDRO 16:10 → N.TELEN 16:57
PROVIDERS: ADMIT Internal Medicine; ATTEND Emergency Medicine